=== PATIENT | female | born 1960 | race Caucasian/White ===

== ENCOUNTER 2017-03-27 10:00 | Emergency (ER) | payer OTHER ==
[~2017-03-27] VITALS: Ht 160 cm; Wt 63.6 kg
[2017-03-27 10:07] VITALS: TEMP 97.6
[2017-03-27] MEDS ORDERED: VITAMIN D 1001000 IU (10:12)
[2017-03-27] MEDS ORDERED: FLEXERIL 1010 MG/TAB PO (11:36)
[2017-03-27 12:08] VITALS: BP 113/59; PULSE 69
== END 2017-03-27 12:08 | disposition home or self-care (01) ==
LOC: COL.ER 10:00
DX: M54.5 Low back pain (principal); G89.29 Other chronic pain; R20.2 Paresthesia of skin; M25.551 Pain in right hip
CPT/HCPCS: J1885; J2360

== ENCOUNTER 2017-06-02 09:51 | Emergency (ER) | payer OTHER ==
[~2017-06-02] VITALS: Ht 162.6 cm; Wt 61.8 kg
[~2017-06-02 09:51] MED LIST: FLEXERIL 1010 MG/TAB PO; VITAMIN D 1001000 IU
[2017-06-02 09:54] VITALS: BP 119/60; PULSE 88; TEMP 97.7
[2017-06-02] MEDS ORDERED: CIPRO 500MG TA500 MG PO ×2 (10:56→11:27)
== END 2017-06-02 11:30 | disposition home or self-care (01) ==
LOC: COL.ER 09:51
DX: S91.331A Puncture wound without foreign body, right foot, initial encounter (principal); W22.8XXA Striking against or struck by other objects, initial encounter; Y92.009 Unspecified place in unspecified non-institutional (private) residence as the place of occurrence of the external cause; Z90.710 Acquired absence of both cervix and uterus; Z23 Encounter for immunization

== ENCOUNTER 2017-06-03 14:59 | Emergency (ER) | payer OTHER ==
[~2017-06-03] VITALS: Ht 160 cm; Wt 61.8 kg
[~2017-06-03 14:59] MED LIST changes: +CIPRO 500MG TA500 MG PO
[2017-06-03 15:05] VITALS: BP 108/55; TEMP 98.6
[2017-06-03 15:57] LABS: BASO % 0.4 % (0.0-2.0); EOS # 0.2 (0.0-0.7); EOS % 2.6 % (0-4.0); GRAN # 4.6 (1.4-6.5); GRAN % 59.8 % (42.2-75.2); HEMOGLOBIN 12.4 g/dl (12.5-16.0); LYMPH % 26.3 % (20.0-51.0); MEAN CELL VOLUME 90 fl (80.0-100.0); MEAN CORPUSCULAR HEMOGLOBIN 31 pg (27.0-31.0); MEAN CORPUSCULAR HGB CONC 34 g/dl (33.0-37.0); MEAN PLATELET VOLUME 9.8 fl (7.4-10.4); MONO # 0.8 (0.1-0.6); MONO % 10.5 % (1.7-9.3); PLATELET COUNT 318 K/mm3 (130-400); RED BLOOD COUNT 4.04 M/mm3 (4.10-5.30); REDCELL DISTRIBUTION WIDTH-CV 12.2 % (11.5-14.5); WHITE BLOOD COUNT 7.8 K/mm3 (4.8-10.8)
[2017-06-03 15:58] LABS: HEMATOCRIT 36.2 % (37.0-47.0)
[2017-06-03 16:05] LABS: ADJUSTED CALCIUM 8.9 mg/dL (8.4-10.2); ALBUMIN 4.2 gm/dL (3.5-5.0); BILIRUBIN,TOTAL 0.6 mg/dL (0.0-1.0); C-REACTIVE PROTEIN 0.7 mg/dL (0.0-0.9); CALCIUM 9.1 mg/dL (8.4-10.2); CREATININE, serum 0.71 mg/dL (0.52-1.25); POTASSIUM 3.7 mmol/L (3.4-5.0); TOTAL PROTEIN 7.3 gm/dL (6.4-8.2)
[2017-06-03 16:37] VITALS: PULSE 75
== END 2017-06-03 16:39 | disposition home or self-care (01) ==
LOC: COL.ER 14:59
PROVIDERS: Physician Assistant
DX: R53.81 Other malaise (principal)

== ENCOUNTER → 2018-04-14 | Outpatient (CLI) | payer OTHER ==
[~2018-04-14] MED LIST changes: +IBU800 M1 PO; +INFANTS AQU400 IU/ML; +MOTRIN SUSP20 MG/ML; +PREDNISONE20 MG PO; +ST. JOHN'S WOR250 MG; +ZITHROMAX Z PA250 MG PO
== END ==
LOC: COL.RAD 10:54
DX: M47.899 Other spondylosis, site unspecified (principal)

== ENCOUNTER 2018-11-25 22:34 | Emergency (ER) | payer OTHER ==
[~2018-11-25] VITALS: Ht 160 cm; Wt 63.6 kg
[2018-11-25 22:39] VITALS: TEMP 98.2
[2018-11-25] MEDS ORDERED: TYLENOL 325MG325 MG PO (22:46)
[2018-11-25 22:50] LABS: BASO % 0.4 % (0.0-2.0); EOS # 0.2 (0.0-0.7); EOS % 2.3 % (0-4.0); GRAN # 4.8 (1.4-6.5); GRAN % 60.8 % (42.2-75.2); HEMATOCRIT 37.5 % (37.0-47.0); HEMOGLOBIN 12.7 g/dl (12.5-16.0); LYMPH % 25.6 % (20.0-51.0); MEAN CELL VOLUME 88 fl (80.0-100.0); MEAN CORPUSCULAR HEMOGLOBIN 30 pg (27.0-31.0); MEAN CORPUSCULAR HGB CONC 34 g/dl (33.0-37.0); MONO # 0.8 (0.1-0.6); MONO % 10.6 % (1.7-9.3); PLATELET COUNT 301 K/mm3 (130-400); RED BLOOD COUNT 4.26 M/mm3 (4.10-5.30); REDCELL DISTRIBUTION WIDTH-CV 11.8 % (11.5-14.5)
[2018-11-25 22:58] LABS: INR 0.9 (0.8-3.0); PROTHROMBIN TIME 10.6 SECONDS (9.7-12.8)
[2018-11-25 23:01] LABS: PARTIAL THROMBOPLASTIN TIME 33.1 SECONDS (26.0-37.0)
[2018-11-25 23:03] LABS: ALANINE AMINOTRANSFERASE 29 U/L (9-52); ALBUMIN 4.5 gm/dL (3.5-5.0); ALKALINE PHOSPHATASE 96 U/L (50-136); ANION GAP 11 mmol/L (7-16); AST,SGOT 36 U/L (15-37); BILIRUBIN,TOTAL 0.4 mg/dL (0.0-1.0); BLOOD UREA NITROGEN 12 mg/dL (7-17); CALCIUM 9.5 mg/dL (8.4-10.2); CARBON DIOXIDE 24 mmol/L (22-30); CHLORIDE 105 mmol/L (98-107); GLUCOSE 112 mg/dL (74-106); SODIUM 139 mmol/L (137-145); TOTAL PROTEIN 7.7 gm/dL (6.4-8.2)
[2018-11-25 23:15] LABS: TROPONIN-I < 0.012 ng/mL (0.000-0.035)
[2018-11-25] MEDS ORDERED: PREDNISONE20 MG PO (23:33)
[2018-11-25] MEDS ORDERED: ZITHROMAX 250M250 MG PO (23:33)
[2018-11-25 23:51] VITALS: BP 135/92; PULSE 71
== END 2018-11-25 23:52 | disposition home or self-care (01) ==
LOC: COL.ER 22:34
PROVIDERS: Family Medicine
DX: J40 Bronchitis, not specified as acute or chronic (principal); F17.210 Nicotine dependence, cigarettes, uncomplicated; K21.9 Gastro-esophageal reflux disease without esophagitis
CPT/HCPCS: J7512

== ENCOUNTER 2019-03-04 14:52 | Emergency (ER) | payer SELFPAY ==
[~2019-03-04] VITALS: Ht 162.6 cm; Wt 63.2 kg
[~2019-03-04 14:52] MED LIST changes: +TYLENOL 325MG325 MG PO; +ZITHROMAX 250M250 MG PO
[2019-03-04] MEDS ORDERED: FLEXERIL 1010 MG/TAB PO (16:04)
[2019-03-04 16:22] VITALS: BP 122/63; PULSE 74; TEMP 98.2
== END 2019-03-04 16:25 | disposition home or self-care (01) ==
LOC: COL.ER 14:52
DX: M54.5 Low back pain (principal); K21.9 Gastro-esophageal reflux disease without esophagitis; Z79.51 Long term (current) use of inhaled steroids

== ENCOUNTER 2019-04-17 18:26 | Emergency (ER) | payer SELFPAY ==
[~2019-04-17] VITALS: Ht 162.6 cm; Wt 63.6 kg
[2019-04-17 18:48] VITALS: TEMP 97.6
[2019-04-17 21:43] VITALS: BP 115/67; PULSE 74
== END 2019-04-17 21:43 | disposition home or self-care (01) ==
LOC: COL.ER 18:26
DX: M25.562 Pain in left knee (principal); Z96.652 Presence of left artificial knee joint

== ENCOUNTER 2019-05-08 09:28 | Emergency (ER) | payer SELFPAY ==
[~2019-05-08] VITALS: Ht 160 cm; Wt 68.1 kg
[2019-05-08 09:42] VITALS: PULSE 82
[2019-05-08] MEDS ORDERED: PREDNISONE20 MG PO (09:54)
[2019-05-08] MEDS ORDERED: ZITHROMAX Z PA250 MG PO ×2 (09:54→10:33)
[2019-05-08 10:29] VITALS: BP 95/50; TEMP 98.1
[2019-05-08] MEDS ORDERED: PROAIR HFA0.09 MG/AC IH (10:33)
== END 2019-05-08 10:45 | disposition home or self-care (01) ==
LOC: COL.ER 09:28
DX: J45.909 Unspecified asthma, uncomplicated (principal); F17.210 Nicotine dependence, cigarettes, uncomplicated; F12.90 Cannabis use, unspecified, uncomplicated
CPT/HCPCS: J7512

== ENCOUNTER 2019-10-24 07:50 | Emergency (ER) | payer SELFPAY ==
[~2019-10-24] VITALS: Ht 162.6 cm; Wt 63.6 kg
[~2019-10-24 07:50] MED LIST changes: +PROAIR HFA0.09 MG/AC IH
[2019-10-24 07:58] VITALS: BP 147/79; TEMP 97.1
[2019-10-24] MEDS ORDERED: NORCO 325 MG-51 TAB PO (09:21)
[2019-10-24 09:30] VITALS: PULSE 87
== END 2019-10-24 09:30 | disposition home or self-care (01) ==
LOC: COL.ER 07:50
DX: M54.41 Lumbago with sciatica, right side (principal); K21.9 Gastro-esophageal reflux disease without esophagitis; F41.9 Anxiety disorder, unspecified; F17.210 Nicotine dependence, cigarettes, uncomplicated
CPT/HCPCS: J1885; J2360

== ENCOUNTER 2020-03-14 14:45 | Emergency (ER) | payer SELFPAY ==
[~2020-03-14] VITALS: Ht 160 cm; Wt 63.6 kg
[~2020-03-14 14:45] MED LIST changes: +NORCO 325 MG-51 TAB PO
[2020-03-14 14:55] VITALS: TEMP 99.1
[2020-03-14 16:33] LABS: COLLECTION METHOD CLEAN CATCH
[2020-03-14 17:03] LABS: PH 6 (5-8); URINE APPEARANCE Clear; URINE BILIRUBIN Negative (NEGATIVE); URINE COLOR Straw; URINE GLUCOSE Negative (NEGATIVE); URINE KETONE Negative (NEGATIVE); URINE PROTEIN(semi-quant) Negative (NEGATIVE); URINE UROBILINOGEN Negative (NEGATIVE)
[2020-03-14 17:04] LABS: MUCOUS Present /lpf; SQUAMOUS EPITHELIAL 0-2 /hpf; URINE BACTERIA None Seen /hpf; URINE BLOOD 1+ (NEGATIVE); URINE LEUKOCYTE ESTERASE Negative (NEGATIVE); URINE NITRATE Negative (NEGATIVE); URINE RBC 0-2 /hpf
[2020-03-14 17:33] LABS: BASO # 0.1 (0.0-0.2); BASO % 0.7 % (0.0-2.0); EOS # 0.3 (0.0-0.7); EOS % 3.9 % (0-4.0); GRAN # 4.8 (1.4-6.5); GRAN % 54.8 % (42.2-75.2); LYMPH # 2.6 (1.2-3.4); LYMPH % 29.5 % (20.0-51.0); MEAN CELL VOLUME 91 fl (80.0-100.0); MEAN CORPUSCULAR HEMOGLOBIN 30 pg (27.0-31.0); MEAN CORPUSCULAR HGB CONC 33 g/dl (33.0-37.0); MEAN PLATELET VOLUME 9.7 fl (7.4-10.4); MONO % 10.9 % (1.7-9.3); PLATELET COUNT 319 K/mm3 (130-400); RED BLOOD COUNT 4.05 M/mm3 (4.10-5.30); REDCELL DISTRIBUTION WIDTH-CV 12.5 % (11.5-14.5)
[2020-03-14 17:36] LABS: HEMATOCRIT 36.7 % (37.0-47.0)
[2020-03-14 17:38] LABS: ALANINE AMINOTRANSFERASE 47 U/L (4-34); ALBUMIN 4.2 gm/dL (3.5-5.0); ALKALINE PHOSPHATASE 92 U/L (50-136); ANION GAP 7 mmol/L (7-16); AST,SGOT 37 U/L (15-37); BILIRUBIN,TOTAL 0.5 mg/dL (0.0-1.0); BLOOD UREA NITROGEN 9 mg/dL (7-17); CALCIUM 9.5 mg/dL (8.4-10.2); CARBON DIOXIDE 26 mmol/L (22-30); CHLORIDE 106 mmol/L (98-107); CREATININE, serum 0.62 (0.52-1.25); GLUCOSE 102 mg/dL (74-106); POTASSIUM 4.1 mmol/L (3.4-5.0); SODIUM 139 mmol/L (137-145); TOTAL PROTEIN 7.5 gm/dL (6.4-8.2)
[2020-03-14 17:50] LABS: TROPONIN-I < 0.012 ng/mL (0.000-0.035)
[2020-03-14] MEDS ORDERED: FLEXERIL 1010 MG/TAB PO (17:56)
[2020-03-14] MEDS ORDERED: PREDNISONE20 MG PO (17:56)
[2020-03-14] MEDS ORDERED: ZITHROMAX 250M250 MG PO (17:56)
[2020-03-14 18:20] VITALS: BP 126/70; PULSE 96
== END 2020-03-14 18:22 | disposition home or self-care (01) ==
LOC: COL.ER 14:45
PROVIDERS: Nurse Practitioner
DX: J20.9 Acute bronchitis, unspecified (principal); M54.5 Low back pain; J44.9 Chronic obstructive pulmonary disease, unspecified; F17.210 Nicotine dependence, cigarettes, uncomplicated; Z90.710 Acquired absence of both cervix and uterus
CPT/HCPCS: J1885; J2360; J7512

== ENCOUNTER 2021-08-22 05:41 | Emergency (ER) | payer SELFPAY ==
[~2021-08-22] VITALS: Ht 162.6 cm; Wt 68.2 kg
[2021-08-22 05:44] VITALS: BP 112/61; TEMP 98.1
[2021-08-22 07:38] LABS: BASO # 0.1 K/mm3 (0.0-0.2); BASO % 0.5 % (0.0-2.0); EOS # 0.2 K/mm3 (0.0-0.7); EOS % 1.9 % (0-4.0); GRAN # 8.7 K/mm3 (1.4-6.5); GRAN % 68.7 % (42.2-75.2); HEMATOCRIT 38.1 % (37.0-47.0); HEMOGLOBIN 12.4 g/dl (12.5-16.0); LYMPH # 2.6 K/mm3 (1.2-3.4); LYMPH % 20.4 % (20.0-51.0); MEAN CELL VOLUME 91 fl (80.0-100.0); MEAN CORPUSCULAR HEMOGLOBIN 30 pg (27.0-31.0); MEAN CORPUSCULAR HGB CONC 33 g/dl (33.0-37.0); MEAN PLATELET VOLUME 9.6 fl (7.4-10.4); MONO % 7.8 % (1.7-9.3); PLATELET COUNT 434 K/mm3 (130-400); RED BLOOD COUNT 4.21 M/mm3 (4.10-5.30); REDCELL DISTRIBUTION WIDTH-CV 12.4 % (11.5-14.5)
[2021-08-22 07:46] LABS: ALBUMIN 3.8 gm/dL (3.5-5.0); BILIRUBIN,TOTAL 0.4 mg/dL (0.2-1.2); CALCIUM 9.6 mg/dL (8.4-10.2); CREATININE, serum 0.73 mg/dL (0.57-1.11); TOTAL PROTEIN 7.1 gm/dL (6.2-8.1)
[2021-08-22 08:30] VITALS: PULSE 78
== END 2021-08-22 08:30 | disposition home or self-care (01) ==
LOC: COL.ER 05:41
PROVIDERS: Student in an Organized Health Care Education/Training Program
DX: B34.9 Viral infection, unspecified (principal); F17.210 Nicotine dependence, cigarettes, uncomplicated; Z86.16 Personal history of COVID-19

== ENCOUNTER 2022-06-29 07:21 | Emergency (ER) | payer SELFPAY ==
[~2022-06-29] VITALS: Ht 160 cm; Wt 63.0 kg
[~2022-06-29 07:21] MED LIST changes: +MOTRIN 800800 MG/TAB PO
[2022-06-29 07:31] VITALS: TEMP 97.4
[2022-06-29] MEDS ORDERED: ROBAXIN 75750 MG/TAB PO (07:51)
[2022-06-29] MEDS ORDERED: IBU600 MG PO (07:51)
[2022-06-29 08:17] VITALS: BP 146/67; PULSE 79
== END 2022-06-29 08:17 | disposition home or self-care (01) ==
LOC: COL.ER 07:21
DX: M54.50 Low back pain, unspecified (principal); F17.210 Nicotine dependence, cigarettes, uncomplicated; Z98.890 Other specified postprocedural states; Z88.6 Allergy status to analgesic agent; Z28.310 Unvaccinated for COVID-19
CPT/HCPCS: J1885